=== PATIENT | male | born 1990 | race Caucasian/White ===

== ENCOUNTER 2017-01-29 02:39 | Emergency (ER) | payer OTHER ==
[2017-01-29] MEDS ORDERED: predniSONE 20 MG TABLET (UD) PO ONE (03:20)
[2017-01-29] MEDS ORDERED: SULFAMETHOXAZOLE/TRIMETHOPRIM 800MG/160MG D.S. TABLET PO ONE (03:20)
[2017-01-29] MEDS ORDERED: CEPHALEXIN MONOHYDRATE 500 MG CAPSULE (UD) PO ONE (03:20)
[2017-01-29] MEDS ORDERED: predniSONE 20 MG TABLET (UD) ONE (03:24)
[2017-01-29] MEDS ORDERED: SULFAMETHOXAZOLE/TRIMETHOPRIM 800MG/160MG D.S. TABLET ONE (03:24)
[2017-01-29] MEDS ORDERED: CEPHALEXIN MONOHYDRATE 250 MG CAPSULE (FP) ONE (03:25)
--- NOTE | 2017-01-29 03:31 | PDOC ---
History of Present Illness - General Chief Complaint: Rash Stated Complaint: RASH LEGS AND ARMS Time Seen by Provider: 01/29/17 02:48 History Source: Patient Exam Limitations: No Limitations - History of Present Illness Initial Comments: 01/29/17 03:22 26yo Male patient with no significant past medical history presents to ED c/o rash to b/l AIYANA and UE x 1 week. 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 He reports benadryl oral and topically. but continues to itch rash. He denies fever. Timing/Duration: reports: week Severity: Yes: moderate Location: reports: extremities. denies: none, face, feet, genitalia, generalized, hands, other, scalp, torso Respiratory Risk Factors: reports: other Modifying Factors: improves with: antihistamine, scratching. worse with: calamine lotion, prednisone, topical steriods, other Associated Symptoms: denies: denies symptoms, blisters, change in skin texture, edema, fever, flushing, headache, hives, jaundice, malaise, nasal congestion, numbness, pallor, paresthesia, petechiae, rash, sore throat, swelling/mass/lumps , tingling, other Past History - Travel Traveled outside of the country in the last 30 days: No Close contact w/someone who was outside of country & ill: No - Past Medical History Allergies/Adverse Reactions: Allergies Allergy/AdvReac Type Severity Reaction Status Date / Time No Known Allergies Allergy Verified 01/29/17 02:50 Home Medications: Ambulatory Orders Cephalexin Monohydrate [Keflex -] 500 mg PO BID #20 capsule 01/29/17 Prednisone 10 mg PO ASDIR #21 tablet 01/29/17 Sulfamethoxazole/Trimethoprim [Bactrim Ds -] 1 tab PO BID #14 tablet 01/29/17 - Immunization History Immunization Up to Date: Yes - Psycho/Social/Smoking Cessation Hx Suicidal Ideation: No Smoking History: Never smoked Have you smoked in the past 12 months: No Information on smoking cessation initiated: No Hx Alcohol Use: No Drug/Substance Use Hx: No Substance Use Type: None Review of Systems - Review of Systems Able to Perform ROS?: Yes Is the patient limited [place] proficient: No Integumentary: Yes: Rash All Other Systems: Reviewed and Negative *Physical Exam - Vital Signs Last Vital Signs Temp Pulse Resp BP Pulse Ox 98.6 F 80 20 135/75 100 01/29/17 02:50 01/29/17 02:50 01/29/17 02:50 01/29/17 02:50 01/29/17 02:50 - Physical Exam General Appearance: Yes: Nourished, Appropriately Dressed. No: Apparent Distress, Mild Distress, Moderate Distress, Severe Distress Neck: positive: Trachea midline, Normal Thyroid, Supple. negative: Decreased range of motion, Stridor, Lymphadenopathy (R), Lymphadenopathy (L) Respiratory/Chest: positive: Lungs Clear, Normal Breath Sounds. negative: Chest Tender, Respiratory Distress, Accessory Muscle Use, Labored Respiration, Rapid RR Cardiovascular: positive: Regular Rhythm, Regular Rate Musculoskeletal: positive: Normal Inspection. negative: CVA Tenderness, Vertebral Tenderness Extremity: positive: Normal Capillary Refill, Normal Inspection, Normal Range of Motion, Erythema, Inflammation. negative: Pedal Edema, Swelling, Calf Tenderness Integumentary: positive: Normal Color, Dry, Warm, Erythema, Rash, Other ( scattered healing wounds) Neurologic: positive: file clerk II-XII NML intact, Fully Oriented, Alert, Normal Mood/ Affect, Normal Response, Motor Strength 5/5 *DC/Admit/Observation/Transfer Diagnosis at time of Disposition: Poison bev dermatitis - Discharge Dispostion Disposition: HOME Condition at time of disposition: Stable Admit: No - Prescriptions Prescriptions: Sulfamethoxazole/Trimethoprim [Bactrim Ds -] 1 tab PO BID #14 tablet Cephalexin Monohydrate [Keflex -] 500 mg PO BID #20 capsule Prednisone 10 mg PO ASDIR #21 tablet - Patient Instructions Printed Discharge Instructions: Summertime Rashes: Poison Bev, Hugo, and Sum[place], Poisonous Plants: Bev, Hugo, and [place]: Beware the Oils, DI for Poison Bev Allergy Additional Instructions: FOLLOW UP WITH YOUR PRIMARY CARE PROVIDER NEEDED. TAKE MEDICATIONS PRESCRIBED. TRY ZANFEL SOAP OVER THE COUNTER TO HELP WITH SYMPTOMS. Print Language: SERBIAN
[2017-01-29 03:44] VITALS: BP 135/75; PULSE 80; TEMP 98.6; BMI 34.2
== END 2017-01-29 04:25 | disposition home or self-care (01) ==
LOC: JER 02:39
DX: L23.7 Allergic contact dermatitis due to plants, except food (principal)
CPT/HCPCS: 99281-25